=== PATIENT | female | born 1990 | race Caucasian/White ===

== ENCOUNTER 2023-04-15 18:54 | Emergency (ER) | payer MEDICAID, OTHER ==
[2023-04-15] MEDS ORDERED: Ibuprofen 800 MG Tab PO ONE (19:38)
[2023-04-15] MEDS ORDERED: oxyCODONE 5 MG Tab PO ONE (19:38)
[2023-04-15] MEDS: Acetaminophen 325 MG Tab PO ONE ×2 (19:55→20:40)
== END 2023-04-15 21:30 | disposition home or self-care (01) ==
LOC: JD.ED 18:54
DX: S42.251A Displaced fracture of greater tuberosity of right humerus, initial encounter for closed fracture (principal); W01.0XXA Fall on same level from slipping, tripping and stumbling without subsequent striking against object, initial encounter; Y92.59 Other trade areas as the place of occurrence of the external cause
CPT/HCPCS: 73030; 73060; 99283; A9270